=== PATIENT | female | born 1980 | race Asian ===

== ENCOUNTER 2018-07-30 02:08 | Emergency (ER) | payer MEDICARE, MEDICAID ==
[~2018-07-30] VITALS: Ht 162.6 cm; Wt 60.0 kg
[~2018-07-30 02:08] MED LIST: PREN1TAB52
[2018-07-30] MEDS ORDERED: SERT50TA12 PO (02:32)
[2018-07-30] MEDS ORDERED: AMLO-512 PO (02:32)
[2018-07-30] MEDS ORDERED: SEVEC800 PO (02:32)
[2018-07-30] MEDS ORDERED: CARV6 PO (02:32)
[2018-07-30] MEDS ORDERED: LORazepam 1 MG TABLET PO ONE (04:00)
[2018-07-30 05:02] VITALS: BP 135/88
== END 2018-07-30 05:53 | disposition home or self-care (01) ==
LOC: EMS 02:10
DX: F41.9 Anxiety disorder, unspecified (principal); I10 Essential (primary) hypertension; F12.90 Cannabis use, unspecified, uncomplicated; Z86.73 Personal history of transient ischemic attack (TIA), and cerebral infarction without residual deficits; Z88.5 Allergy status to narcotic agent